=== PATIENT | female | born 1985 | race Caucasian/White ===

== ENCOUNTER 2022-04-21 09:14 | Day surgery (SDC) | payer BC ==
[2022-04-17 14:20] VITALS: BMI 35.2
[~2022-04-21 09:14] MED LIST: LACTATED RINGERS 1,000 ML IV SCH
[2022-04-21 10:22] VITALS: RESP 16; TEMP 97
[2022-04-21] MEDS ORDERED: LIDOCAINE 2% INJ 20 MG/ML (2 ML VIAL) ONE (10:39)
[2022-04-21] MEDS ORDERED: PROPOFOL 10 MG/ML 20 ML VIAL IV ONE (10:39)
[2022-04-21] MEDS ORDERED: MIDAZOLAM 2 MG/2 ML VIAL ONE (10:39)
--- NOTE | 2022-04-21 10:53 | P.PCN ---
Date of Procedure: 04/21/22 Procedure(s) Performed: BRIEF HISTORY: Patient is a 36-year-old, pleasant, white female scheduled for an upper endoscopy as part of evaluation of gastric esophageal he for symptoms for the last 1 year duration. He takes [id number] Zantac as needed and still has breakthrough symptoms almost on a daily basis . PROCEDURE PERFORMED: Esophagogastroduodenoscopy with biopsy. PREOPERATIVE DIAGNOSIS: Long-standing history of GERD. IV sedation per anesthesia. PROCEDURE: After informed consent was obtained, the patient was brought into the endoscopy unit. IV sedation was administered by Anesthesia under continuous monitoring. Initially the Olympus GIF-140 video endoscope was inserted into the mouth. Esophagus intubated without any difficulty. It was gradually advanced into the stomach and duodenum and carefully examined. The bulb and the second part of the duodenum appeared normal. The scope at this time was withdrawn to the stomach, adequately insufflated with air, and upon careful examination, mucosa of the antrum, had mild gastritis and biopsies were done from this area. Mucosa of the body, cardia and the fundus appeared normal. The scope was then withdrawn into the esophagus. The GE junction was located at 37 cm from the incisors. Small sliding type hiatal hernia noted The esophagus appeared normal. There were no erosions or ulcerations seen and the patient tolerated the procedure well. IMPRESSION: 1. Mild antral gastritis and duodenitis. 2. Small hiatal hernia but no evidence of esophagitis or Cerda's esophagus. RECOMMENDATIONS: The findings of this examination were discussed with the patient as well his family. Follow with the biopsy results. She was advised to increase famotidine to 20 mg twice daily and follow antireflux measures..
[2022-04-21 11:38] VITALS: BP 136/87; PULSE 65
[2022-04-21] MEDS ORDERED: ONDANSETRON 4 MG/2 ML VIAL ONE (11:45)
[2022-04-21] MEDS ORDERED: ONDANSETRON 4 MG/2 ML VIAL IVP ONE (11:45)
== END 2022-04-21 12:29 | disposition home or self-care (01) ==
LOC: ORWHC2ENDO 09:14
PROVIDERS: ATTEND Internal Medicine Gastroenterology
DX: K29.50 Unspecified chronic gastritis without bleeding (principal); K44.9 Diaphragmatic hernia without obstruction or gangrene; K29.80 Duodenitis without bleeding; K21.9 Gastro-esophageal reflux disease without esophagitis; F41.9 Anxiety disorder, unspecified; F43.10 Post-traumatic stress disorder, unspecified; F17.200 Nicotine dependence, unspecified, uncomplicated; Z91.013 Allergy to seafood; Z91.041 Radiographic dye allergy status; Z79.899 Other long term (current) drug therapy
CPT/HCPCS: 81025; 88305; 43239; J2250; J2405; J2704; J2001